=== PATIENT | male | born 1960 | race Caucasian/White ===

== ENCOUNTER 2024-05-02 14:30 | Outpatient (CLI) | payer OTHER ==
[2024-05-02] MEDS ORDERED: Iopamidol 370 76% 100 ML VIAL ONE (15:36)
== END 2024-05-02 14:31 | disposition home or self-care (01) ==
LOC: CSHCT 14:30
PROVIDERS: ATTEND Internal Medicine Cardiovascular Disease
DX: R09.89 Other specified symptoms and signs involving the circulatory and respiratory systems (principal); I65.23 Occlusion and stenosis of bilateral carotid arteries
CPT/HCPCS: 36415; 70498; 82565